=== PATIENT | female | born 1995 | race American Indian/Alaskan Native ===

== ENCOUNTER 2017-02-25 13:31 | Emergency (ER) | payer MEDICAID ==
[2017-02-25 14:16] LABS: Basophils % (Auto) 0.4 % (0.0-1.8); Eosinophils % (Auto) 0.5 % (0.0-4.3); Hematocrit 39.8 % (30.3-42.9); Hemoglobin 13.4 gm/dl (10.1-14.3); Mean Corpuscular HGB Conc 34 % (30-34); Mean Corpuscular Hemoglobin 31 pg (28-32); Mean Corpuscular Volume 91 fl (79-97); Platelet Count 323 K/mm3 (140-440); Red Blood Count 4.37 M/mm3 (3.65-5.03); Red Cell Distribution Width 13.6 % (13.2-15.2); White Blood Count 6.1 K/mm3 (4.5-11.0)
[2017-02-25 14:35] LABS: Alanine Aminotransferase 6 units/L (7-56); Albumin 3.8 g/dL (3.9-5); Albumin/Globulin Ratio 1.4 %; Alkaline Phosphatase 36 units/L (35-129); Anion Gap 17 mmol/L; Blood Urea Nitrogen 3 mg/dL (7-17); Calcium 8.9 mg/dL (8.4-10.2); Carbon Dioxide 23 mmol/L (22-30); Chloride 101.4 mmol/L (98-107); Glucose 98 mg/dL (65-100); Lipase 11 units/L (13-60); Potassium 3.6 mmol/L (3.6-5.0); Sodium 138 mmol/L (137-145); Total Protein 6.6 g/dL (6.3-8.2)
[2017-02-25 14:45] LABS: Bacteria,Urine 2+ /HPF (Negative); Bilirubin,Urine NEG (Negative); Blood,Urine NEG (Negative); Ketones,Urine NEG (Negative); Leukocyte Esterase,Urine NEG (Negative); Mucus,Urine FEW /HPF; Nitrite,Urine NEG (Negative); Protein,Urine <15 mg/dL mg/dL (Negative); Urobilinogen,Urine < 2.0 mg/dL (<2.0)
--- NOTE | 2017-02-25 16:46 | Ultrasound Report ---
FINAL REPORT PROCEDURE: US OB \T\lt; = 14 WEEKS FETUS TECHNIQUE: Real-time transabdominal and transvaginal sonography of the uterus, placenta, amniotic fluid, adnexa, and fetus was performed with image documentation. Measurements were obtained to determine age/size. M-mode Doppler was used to document heartbeat. CPT 92524 and 55883 HISTORY: preg/abd pain COMPARISON: No prior studies are available for comparison. FINDINGS: Single live intrauterine is seen with crown-rump length of 6.7 millimeters corresponding to 6 weeks 4 days gestational age. Estimated date of delivery based on this measurement is October 17, 2017. heart rate is 126 beats per minute. Right ovary measures 3.4 x 1.7 x 2.2 cm. It contains a 2 cm complex cyst. Left ovary measures 2.2 x 1.2 x 1.8 cm. Normal Doppler flow seen in the ovaries. No free pelvic fluid is seen. IMPRESSION: 1. Single live intrauterine gestation at approximately 6 weeks 4 days. 2. EDC by US October 17, 2017 3. Complete anatomic survey at 18-20 weeks suggested.
--- NOTE | 2017-02-25 16:46 | Ultrasound Report ---
FINAL REPORT PROCEDURE: US OB TRANSVAGINAL TECHNIQUE: Real-time transabdominal and transvaginal sonography of the uterus, placenta, amniotic fluid, adnexa, and fetus was performed with image documentation. Measurements were obtained to determine age/size. M-mode Doppler was used to document heartbeat. CPT 13552 and 77151 HISTORY: preg/abd pain COMPARISON: No prior studies are available for comparison. FINDINGS: Single live intrauterine is seen with crown-rump length of 6.7 millimeters corresponding to 6 weeks 4 days gestational age. Estimated date of delivery based on this measurement is October 17, 2017. heart rate is 126 beats per minute. Right ovary measures 3.4 x 1.7 x 2.2 cm. It contains a 2 cm complex cyst. Left ovary measures 2.2 x 1.2 x 1.8 cm. Normal Doppler flow seen in the ovaries. No free pelvic fluid is seen. IMPRESSION: 1. Single live intrauterine gestation at approximately 6 weeks 4 days. 2. EDC by US is October 17, 2017. 3. Complete anatomic survey at 18-20 weeks suggested.
[2017-02-25] MEDS ORDERED: NACL 0.9% 1000 ML 1,000 ML IV ONE (17:09)
--- NOTE | 2017-02-25 17:13 | Emergency Department Report ---
ED HPI - General Chief complaint: Abdominal Pain Stated complaint: CONSTANT HEAD PAIN/HEAT FLASHES Time Seen by Provider: 02/25/17 16:09 Source: patient Mode of arrival: Ambulatory Limitations: No Limitations - History of Present Illness Initial comments: 21-year-old female with no past medical history presenting today because of lightheadedness and nausea vomiting. Patient states that she been vomiting frequently for the last 1 week. She she was unaware that she was prior to arrival. She has had some spotting on and off over the last week. Has Headache associated with this to which she associated with dehydration. States she is able to keep some food down but a lot of times vomits up after eating. No significant abdominal pain, just mild cramping during vomiting. - Related Data Previous Rx's Medication Instructions Recorded Last Taken Type Pyridoxine [Vitamin B-6] 25 mg PO Q8H PRN #12 tablet 02/25/17 Unknown Rx Allergies Allergy/AdvReac Type Severity Reaction Status Date / Time No Known Allergies Allergy Verified 02/25/17 13:50 ED Review of Systems ROS: Stated complaint: CONSTANT HEAD PAIN/HEAT FLASHES Other details as noted in HPI Comment: All other systems reviewed and negative Constitutional: denies: chills, diaphoresis ENT: denies: throat pain Respiratory: denies: cough Cardiovascular: denies: chest pain Gastrointestinal: denies: abdominal pain, vomiting Genitourinary: denies: dysuria Skin: denies: rash Psychiatric: denies: anxiety ED Past Medical Hx - Past Medical History Hx Hypertension: No Hx CVA: No Hx Heart Attack/AMI: No Hx Congestive Heart Failure: No Hx Diabetes: No Hx Deep Vein Thrombosis: No Hx Pulmonary Embolism: No Hx GERD: Yes Hx Liver Disease: No Hx Renal Disease: No Hx of Cancer: Yes Hx Sickle Cell Disease: No Hx Arthritis: No Hx Headaches / Migraines: No Hx Seizures: No Hx Kidney Stones: No Hx Psychiatric Treatment: No Hx Asthma: No Hx COPD: No Hx Tuberculosis: No Hx Dementia: No Hx HIV: No Additional medical history: 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 had surgery for cancer in 2009; TUMOR REMOVED FROM BACK - Social History Smoking Status: Never Smoker Substance Use Type: None - Medications Home Medications: Home Medications Medication Instructions Recorded Confirmed Last Taken Type Pyridoxine [Vitamin B-6] 25 mg PO Q8H PRN #12 tablet 02/25/17 Unknown Rx ED Physical Exam - General Limitations: No Limitations General appearance: alert, in no apparent distress - Eye Eye exam: Present: normal appearance - ENT ENT exam: Present: mucous membranes dry - Respiratory Respiratory exam: Present: normal lung sounds bilaterally. Absent: respiratory distress - Cardiovascular Cardiovascular Exam: Present: regular rate, normal rhythm - GI/Abdominal GI/Abdominal exam: Present: soft. Absent: distended, tenderness - Extremities Exam Extremities exam: Present: normal inspection - Neurological Exam Neurological exam: Present: alert, oriented X3, CN II-XII intact, normal gait. Absent: motor sensory deficit - Psychiatric Psychiatric exam: Present: normal affect - Skin Skin exam: Present: intact ED Course Vital Signs 02/25/17 02/25/17 02/25/17 13:53 14:00 19:35 Temperature 98.6 F Pulse Rate 75 80 79 Respiratory 16 18 16 Rate Blood Pressure 114/82 Blood Pressure 120/78 115/69 [Left] O2 Sat by Pulse 100 98 98 Oximetry ED Medical Decision Making - Lab Data Result diagrams: 02/25/17 14:03 02/25/17 14:03 - Medical Decision Making Labs and ultrasound had been preordered, ultrasound does show an intrauterine Symptoms are likely secondary to dehydration secondary to nausea and vomiting secondary to , IV fluids ordered, type and screen labs unremarkable type and screen shows O+, rhogam not required Patient is stable for discharge Critical care attestation.: If time is entered above; I have spent that time in minutes in the direct care of this critically ill patient, excluding procedure time. ED Disposition Clinical Impression: Vaginal bleeding in patient at less than 20 weeks gestation Disposition: DISCHARGED TO HOME OR SELFCARE Is pt being admited?: No Condition: Stable Instructions: Abdominal Pain (ED) Additional Instructions: Please follow-up with an [employer]AT RENTAL CLERK in the next 3-5 days. Return to the emergency room if your symptoms significantly worsen or develop new symptoms. Prescriptions: Pyridoxine [Vitamin B-6] 25 mg PO Q8H PRN #12 tablet PRN Reason: Nausea And Vomiting Referrals: MAGDY DUNCAN MD [Staff Physician] - 3-5 Days PRIMARY CARE, [Primary Care Provider] - 3-5 Days
[2017-02-25] MEDS ORDERED: VITAMIN B-6 PO ONE (18:46)
[2017-02-25 20:00] VITALS: BP 115/69
== END 2017-02-25 19:35 | disposition home or self-care (01) ==
LOC: ED 13:31
DX: O26.891 Other specified pregnancy related conditions, first trimester (principal); R42 Dizziness and giddiness; O21.9 Vomiting of pregnancy, unspecified; R11.0 Nausea; K21.9 Gastro-esophageal reflux disease without esophagitis; Z3A.01 Less than 8 weeks gestation of pregnancy
CPT/HCPCS: 36415; 76801; 76817; 80053; 81001; 82962; 83690; 84703; 85025; 86850; 86900; 86901; 96360; 99284; J7030

== ENCOUNTER 2017-09-25 13:50 | Outpatient (CLI) | payer MEDICAID ==
[2017-09-25 14:32] VITALS: BP 134/81
--- NOTE | 2017-09-25 15:39 | Ultrasound Report ---
ULTRASOUND BIOPHYSICAL PROFILE: History: well being Technique: Transabdominal ultrasound with Doppler interrogation. 2 - breathing movements 2 - movements 2 - posture and tone 2 - Qualitative amniotic fluid volume 8 - TOTAL SCORE OF POSSIBLE 8 Heart Rate (bpm) 149
--- NOTE | 2017-09-25 15:58 | Ultrasound Report ---
FINAL REPORT EXAM: US OB FOLLOW UP HISTORY: EFW TECHNIQUE: Ultrasound evaluation of the gravid uterus PRIORS: 02/25/2017 FINDINGS: There is a single viable intrauterine with documented cardiac activity. Multiple ultrasound measurements are made to determine a composite gestational age. ratios are within normal limits. There is no evidence of placenta previa or abruption. The maternal cervix is obscured by head. The quantity of visualized amniotic fluid appears grossly normal. No sonographic abnormality in the visualized portion of the anatomy. Heart rate: 149 beats per minute position: Cephalic Placental position: Fundal grade 2 Amniotic fluid index: 21.8cm Estimated weight: 3194 g Growth percentile by ultrasound: 70 Ultrasound estimated gestational age: 37 weeks 0 days Ultrasound estimated delivery date: 10/16/2017 LMP estimated gestational age: 36 weeks 6 days LMP estimated delivery date: 10/17/2017 IMPRESSION: Single viable intrauterine with the above parameters
== END 2017-09-25 15:49 | disposition home or self-care (01) ==
LOC: TRG 13:50
PROVIDERS: ATTEND Obstetrics & Gynecology
DX: O47.1 False labor at or after 37 completed weeks of gestation (principal); Z3A.37 37 weeks gestation of pregnancy
CPT/HCPCS: 59025; 76816; 76819

== ENCOUNTER 2017-10-09 09:30 | Inpatient (IN) | payer MEDICAID ==
[2017-10-09] MEDS ORDERED: MINERAL OIL PO PRN (09:50)
[2017-10-09] MEDS ORDERED: XYLOCAINE 2% INFILTRATI ONE (09:50)
[2017-10-09] MEDS ORDERED: ePHEDrine SULFATE IV PRN ×2 (09:50→11:57)
[2017-10-09] MEDS ORDERED: BRETHINE SUB-Q PRN (09:50)
[2017-10-09] MEDS ORDERED: SUBLIMAZE IV PRN (09:50)
[2017-10-09] MEDS ORDERED: BRETHINE IVP PRN (09:50)
[2017-10-09] MEDS ORDERED: PITOCin/NS 20 UNIT/1000ML DRIP 20 UNITS/1,000 ML BAG IV SCH (10:00)
--- NOTE | 2017-10-09 10:05 | History and Physical Report ---
History of Present Illness Date of examination: 10/09/17 Date of admission: 10/09/17 09:31 Chief complaint: Contractions every 5 mins History of present illness: Patient presents today with c/o contractions every 5 mins since last night. She denies VB or LOF. She reports positive movements. She has had regular care at [facility] beginning @ 10 weeks gestation. She was a h/ o Vitamin D deficiency and Anemia this and is on supplementation. Her GBS was negative. Past History Past Medical History: no pertinent history Past Surgical History: other (Back surgery) Family/Genetic History: diabetes (Type II DM - maternal grandmother, aunt), heart disease (heart attack - mother, maternal grandmother), hypertension ( mother), stroke (mother) Social history: single - Obstetrical History Expected Date of Delivery: 10/17/17 Actual Gestation: 38 Week(s) 6 Day(s) : 2 Para: 1 Hx # Term Pregnancies: 1 Number of Pregnancies: 0 Spontaneous Abortions: 0 Induced : 0 Number of Living Children: 1 Medications and Allergies Allergies Allergy/AdvReac Type Severity Reaction Status Date / Time No Known Allergies Allergy Verified 10/09/17 09:32 Home Medications Medication Instructions Recorded Confirmed Last Taken Type Pnv,Calcium 72/Iron/Folic Acid 1 each PO DAILY 10/09/17 10/09/17 10/08/17 09:00 History [Preplus Ca-Fe 27 mg-FA 1 mg Tb] 1 Active Meds: Active Medications Ephedrine Sulfate (Ephedrine Sulfate) 10 mg IV Q2M PRN PRN Reason: Hypotension Fentanyl (Sublimaze) 100 mcg IV Q2H PRN PRN Reason: Labor Pain Lactated Ringer's (Lactated Ringers) 1,000 mls @ 125 mls/hr IV DIRECT HILDA Oxytocin/Sodium Chloride (Pitocin/Ns 20 Unit/1000ml Drip) 20 units in 1,000 mls @ 125 mls/hr IV DIRECT HILDA Lidocaine (Xylocaine 2%) 20 ml INFILTRATI ONCE ONE Stop: 10/09/17 09:51 Mineral Oil (Mineral Oil) 30 ml PO QHS PRN PRN Reason: Constipation Terbutaline Sulfate (Brethine) 0.25 mg SUB-Q ONCE PRN PRN Reason: Hyperstimulation/Hypertonicity Terbutaline Sulfate (Brethine) 0.25 mg IVP ONCE PRN PRN Reason: Hyperstimulation/Hypertonicity Review of Systems All systems: negative - Vital Signs Vital signs: Vital Signs Temp Pulse Resp BP Pulse Ox 98.3 F 71 20 129/78 100 10/09/17 09:47 10/09/17 09:47 10/09/17 09:47 10/09/17 09:47 10/09/17 09:47 Temp Pulse Resp BP Pulse Ox 98.3 F 83 20 129/78 99 10/09/17 09:47 10/09/17 09:57 10/09/17 09:47 10/09/17 09:47 10/09/17 09:57 - Physical Exam Breasts: Positive: deferred Cardiovascular: Regular rate, Normal S1, Normal S2, No murmurs Lungs: Positive: Clear to auscultation, Normal air movement Abdomen: Positive: normal appearance, soft Genitourinary (Female): Positive: normal external genitalia, normal perenium Vagina: Positive: normal moisture Uterus: Positive: normal size, normal contour Extremities: Positive: normal Deep Tendon Reflex Grade: Normal +2 - Obstetrical FHR: auscultation normal FHR comments: baseline 140, moderate variability, + accels, no decels Uterine Contraction Monitor Mode: External Cervical Dilatation: 7 (per RN) Cervical Effacement Percentage: 100 (per RN) station: 0 (per RN) Uterine Contraction Frequency (min): 3-5 Uterine Contraction Pattern: Regular Results All other labs normal. Assessment and Plan - Patient Problems (1) 38 weeks gestation of Current Visit: Yes Status: Acute (2) Active labor at term Current Visit: Yes Status: Acute Plan to address problem: Admit to L&D IV sedation prn and/or epidural for pain management Anticipate vaginal delivery
[2017-10-09] MEDS: LACTATED RINGERS 1,000 ML IV SCH ×3 (10:33→13:39)
[2017-10-09 10:37] LABS: Hematocrit 33.7 % (30.3-42.9); Hemoglobin 11.3 gm/dl (10.1-14.3); Mean Corpuscular HGB Conc 33 % (30-34); Mean Corpuscular Hemoglobin 31 pg (28-32); Mean Corpuscular Volume 91 fl (79-97); Platelet Count 281 K/mm3 (140-440); Red Cell Distribution Width 14.9 % (13.2-15.2)
[2017-10-09] MEDS ORDERED: fentaNYL-BUPIV 2 MCG/ML-0.125% 200 MCG/100 ML BAG EPIDURAL ONE (11:35)
[2017-10-09] MEDS ORDERED: NARCAN 2 MG/2 ML IV PRN (11:57)
--- NOTE | 2017-10-09 11:57 | Anesthesia Consultation ---
Anesthesia Consult and Med Hx Date of service: 10/09/17 - Airway Anesthetic Teeth Evaluation: Good ROM Head & Neck: Adequate Mental/Hyoid Distance: Adequate Mallampati Class: Class II Intubation Access Assessment: Good - Pulmonary Exam CTA: Yes - Cardiac Exam Cardiac Exam: No Murmur - Pre-Operative Health Status ASA Pre-Surgery Classification: ASA2 Proposed Anesthetic Plan: Epidural - Pulmonary Hx Asthma: No COPD: No Hx Pneumonia: No - Cardiovascular System Hx Hypertension: No Hx Heart Attack/AMI: No - Central Nervous System Hx Seizures: No Hx Psychiatric Problems: No - Endocrine Hx Renal Disease: No Hx End Stage Renal Disease: No Hx Liver Disease: No Hx Hypothyroidism: No Hx Hyperthyroidism: No - Hematic Hx Anemia: Yes Hx Sickle Cell Disease: No - Other Systems Hx Alcohol Use: No
[2017-10-09] MEDS ORDERED: fentaNYL-BUPIV 2 MCG/ML-0.125% 200 MCG/100 ML BAG EPIDURAL SCH (12:00)
--- NOTE | 2017-10-09 12:24 | Event Note ---
Date: 10/09/17 S: Pt lying supine in semi-fowlers position s/p epidural anesthesia. She denies any pain. O: FHR - baseline 135, min variability, 10x10 accels, no decels CTXS q2-4 mins. palpate moderate SVE 8/100/+1/vtx/BBOW AROM @ 12:12, clear fluid, moderate amount A: 22yo G 2 P 1 0 0 1 @ 38w6d by U/S Active Labor Category II FHR P: Continue current management Anticipate vaginal delivery
[2017-10-09] MEDS ORDERED: MILK OF MAGNESIA PO PRN (14:38)
[2017-10-09] MEDS ORDERED: ZOFRAN IV PRN (14:38)
[2017-10-09] MEDS ORDERED: LANSINOH TP PRN (14:38)
[2017-10-09] MEDS ORDERED: PHENERGAN PO PRN (14:38)
[2017-10-09] MEDS ORDERED: TUCKS PAD TP PRN (14:38)
[2017-10-09] MEDS ORDERED: PHENERGAN PR PRN (14:38)
[2017-10-09] MEDS ORDERED: TYLENOL PO PRN (14:38)
[2017-10-09] MEDS ORDERED: DULCOLAX PR PRN (14:38)
[2017-10-09] MEDS ORDERED: BENADRYL PO PRN (14:38)
--- NOTE | 2017-10-09 14:50 | Procedure Note ---
OB Delivery Note - Delivery Date of Delivery: 10/09/17 (14:18) Surgeon: RAJAT MICHAEL Estimated blood loss: 200cc - Vaginal Delivery presentation: vertex Delivery position: OA Intrapartum events: none Delivery induction: none Delivery augmentation: rupture of membranes (AROM @ 12:12) Delivery monitor: external FHT, external uterine Route of delivery: Delivery placenta: spontaneous Delivery cord: 3 umbilical vessels Episiotomy: none Delivery laceration: none Anesthesia: epidural Delivery comments: of a vigorous term female @ 14:18. Baby placed [id number] on maternal abdomen. After 3 mins, umbilical cord double-clamped by me and cut by FOB. Placenta spontaneously delivered @ 14:24, Leeroy. Fundal massage and IV Pitocin bolus initiated. Fundus F/ML/U+1. Small lochia noted. Placenta intact; was discarded. 3-vessel cord. Perineum intact. No laceration noted. Mom and baby in stable condition. - Infant A at 1 minute: 8 at 5 minutes: 9 Gender: Female (7lbs 11oz (3483gm))
[2017-10-09] MEDS ORDERED: SODIUM CHLORIDE FLUSH SYRINGE 10 ML IV NR (15:00)
[2017-10-09] MEDS: MOTRIN PO SCH ×2 (18:47→23:22)
[2017-10-09] MEDS: NORCO 5/325 PO PRN (18:49)
[2017-10-10 01:18] LABS: Hematocrit 30.9 % (30.3-42.9); Hemoglobin 10.3 gm/dl (10.1-14.3)
[2017-10-10] MEDS: MOTRIN PO SCH ×4 (05:53→20:10)
--- NOTE | 2017-10-10 10:12 | Progress Note ---
Assessment and Plan A: PP Day #1 Stable P: Follow Routine Orders D/C home today per patient request RTO in 6 Weeks Subjective - Subjective Date of service: 10/10/17 Patient reports: appetite normal, voiding normally, pain well controlled, flatus , ambulating normally : doing well Objective - Vital Signs Latest vital signs: Vital Signs Temp Pulse Resp BP BP Pulse Ox 10/10/17 08:02 98.8 F 79 18 97/62 98 10/10/17 06:33 18 10/10/17 05:53 18 10/10/17 00:22 18 10/09/17 23:54 98.9 F 68 20 111/65 98 10/09/17 23:22 18 10/09/17 20:59 97.7 F 63 20 109/64 97 10/09/17 19:49 18 10/09/17 19:47 18 10/09/17 16:15 98.7 F 71 20 128/83 97 10/09/17 16:14 72 97 10/09/17 15:50 98.6 F 68 16 129/72 10/09/17 15:20 98.6 F 10/09/17 15:19 71 133/85 10/09/17 15:04 76 122/82 10/09/17 14:48 89 122/72 10/09/17 14:33 81 119/75 10/09/17 14:28 91 H 110/66 10/09/17 14:24 164 H 98/45 10/09/17 14:15 100 H 123/72 10/09/17 14:11 87 100 10/09/17 14:06 72 99 10/09/17 14:03 83 74 L 10/09/17 14:01 85 98 10/09/17 13:58 79 116/67 10/09/17 13:56 83 97 10/09/17 13:51 84 97 10/09/17 13:46 87 98 10/09/17 13:44 96 H 108/76 10/09/17 13:43 87 0 L 10/09/17 13:41 98.5 F 99 H 18 98 10/09/17 13:36 79 99 10/09/17 13:31 103 H 96 10/09/17 13:29 88 117/76 10/09/17 13:26 81 97 10/09/17 13:21 82 98 10/09/17 13:16 84 98 10/09/17 13:13 80 120/77 10/09/17 13:11 83 100 10/09/17 13:06 82 100 10/09/17 13:01 83 90 10/09/17 13:00 80 109/72 85 10/09/17 12:56 89 98 10/09/17 12:51 87 97 10/09/17 12:46 88 98 10/09/17 12:44 82 125/81 10/09/17 12:41 75 98 10/09/17 12:36 73 100 10/09/17 12:35 56 L 60 L 10/09/17 12:31 74 98 10/09/17 12:29 81 127/71 10/09/17 12:26 85 99 10/09/17 12:21 81 96 10/09/17 12:16 76 98 10/09/17 12:15 98.2 F 10/09/17 12:11 78 98 10/09/17 12:09 76 115/69 10/09/17 12:06 84 97 10/09/17 12:04 77 121/71 10/09/17 12:01 78 97 10/09/17 11:58 79 113/69 10/09/17 11:57 81 121/67 10/09/17 11:56 98.4 F 74 20 97 10/09/17 11:55 90 168/69 10/09/17 11:52 82 125/72 10/09/17 11:51 83 98 10/09/17 11:50 86 124/73 10/09/17 11:42 87 99 10/09/17 11:34 79 94 10/09/17 11:32 79 99 10/09/17 11:27 78 96 10/09/17 11:22 89 97 10/09/17 11:17 86 98 10/09/17 11:12 84 99 10/09/17 11:07 89 98 10/09/17 11:02 83 99 10/09/17 10:59 90 81 L 10/09/17 10:57 83 98 10/09/17 10:52 86 97 10/09/17 10:47 81 98 10/09/17 10:42 92 H 97 10/09/17 10:37 74 99 10/09/17 10:34 20 10/09/17 10:32 85 94 10/09/17 10:29 83 93 10/09/17 10:27 71 99 10/09/17 10:22 80 99 10/09/17 10:17 80 99 Intake and Output 10/09/17 10/10/17 10/10/17 22:59 06:59 14:59 Intake Total 360 120 Output Total 650 Balance -290 120 Intake: Intake, Free Water 360 120 Output: Urine 650 Self-Catheterization 650 Other: Total, Output Amount 650 # Voids Void 1 1 - Exam Breasts: Present: normal Cardiovascular: Present: Regular rate Lungs: Present: Clear to auscultation, Normal air movement Abdomen: Present: normal appearance, soft, normal bowel sounds Uterus: Present: normal, firm, fundal height below umbilicus Extremities: Present: normal
--- NOTE | 2017-10-10 10:13 | Discharge Summary ---
Providers - Providers Date of Admission: 10/09/17 09:31 Date of discharge: 10/10/17 Attending physician: PATRICIA LEBRON MD Primary care physician: PATRICIA LEBRON MD Hospitalization Reason for admission: active labor Delivery: Episiotomy: none Laceration: none Other procedures: none complications: none Discharge diagnosis: IUP at term delivered [place] baby: female Condition at discharge: Good Disposition: DC-01 TO HOME OR SELFCARE Plan - Provider Discharge Summary Activity: routine, no sex for 6 weeks, no heavy lifting 4 weeks, no strenuous exercise Diet: routine Instructions: routine Additional instructions: [] Smoking cessation referral if applicable(refer to patient education folder for contact #) [] Refer to [facility] Booklet Call your doctor immediately for: * Fever > 100.5 * Heavy vaginal bleeding ( >1 pad per hour) * Severe persistent headache * Shortness of breath * Reddened, hot, painful area to leg or breast * Drainage or odor from incision. * Keep incision clean and dry at all times and follow doctor's instructions regarding bathing/showering - Follow up plan Follow up: PATRICIA LEBRON MD [Primary Care Provider] - 6 Weeks
[2017-10-10] MEDS ORDERED: TYLENOL PO PRN (15:59)
[2017-10-10] MEDS ORDERED: LACTATED RINGERS 1,000 ML ONE (16:56)
[2017-10-10] MEDS: CLEOCIN 900 MG/50 mL 900 MG/50 ML BAG IV SCH ×2 (17:49→22:42)
[2017-10-10] MEDS: NORCO 5/325 PO PRN (20:11)
[2017-10-11] MEDS: NORCO 5/325 PO PRN (06:28)
[2017-10-11] MEDS: CLEOCIN 900 MG/50 mL 900 MG/50 ML BAG IV SCH ×2 (06:28→13:32)
[2017-10-11] MEDS: MOTRIN PO SCH ×2 (06:28→12:45)
[2017-10-11 17:45] VITALS: BP 110/79
== END 2017-10-11 17:25 | disposition home or self-care (01) | DRG 775 ==
LOC: TRG 09:30 → LD 09:31 → TRG 09:35 → OB 15:50
PROVIDERS: ADMIT Obstetrics & Gynecology; ATTEND Obstetrics & Gynecology
PROC: 10E0XZZ Delivery of Products of Conception, External Approach (ICD-10-PCS; principal; 2017-10-09)
PROC: 3E0R3BZ Introduction of Anesthetic Agent into Spinal Canal, Percutaneous Approach (ICD-10-PCS; 2017-10-09)
PROC: 00HU33Z Insertion of Infusion Device into Spinal Canal, Percutaneous Approach (ICD-10-PCS; 2017-10-09)
DX: O80 Encounter for full-term uncomplicated delivery (principal); Z3A.38 38 weeks gestation of pregnancy; Z37.0 Single live birth
CPT/HCPCS: 36415; 85014; 85018; 85027; 86592; 86850; 86900; 86901; 99211; A6250; G0463; J2405; J2590; J3010; J7120

== ENCOUNTER 2019-07-24 17:02 | Inpatient (IN) | payer MEDICAID ==
--- NOTE | 2019-07-24 18:14 | History and Physical Report ---
History of Present Illness Date of examination: 07/24/19 Date of admission: 07/24/2019 Chief complaint: Was brought in from the clinic due SFH of 43cm and no care. History of present illness: , vaginal term deliveries. LMP 12/05/2018, no care due to "lack of insurance". Took some multivitamins from otc. Reported contractions all day. Past History Past Medical History: no pertinent history Past Surgical History: no surgical history - Obstetrical History Expected Date of Delivery: 09/11/19 Actual Gestation: 33 Week(s) 0 Day(s) : 3 Para: 2 Medications and Allergies Allergies Allergy/AdvReac Type Severity Reaction Status Date / Time No Known Allergies Allergy Verified 10/09/17 09:32 Home Medications Medication Instructions Recorded Confirmed Last Taken Type Pnv,Calcium 72/Iron/Folic Acid 1 each PO DAILY 10/09/17 10/09/17 10/08/17 09:00 History [Preplus Ca-Fe 27 mg-FA 1 mg Tb] 1 Review of Systems All systems: negative Genitourinary: contractions, no leakage of fluid, no dysuria Integumentary: no pruritis, no jaundice, no bullae - Vital Signs Vital signs: Vital Signs Pulse BP 85 131/83 07/24/19 17:28 07/24/19 17:28 Temp Pulse Resp BP Pulse Ox 98.2 F 85 18 131/83 07/24/19 17:30 07/24/19 17:30 07/24/19 17:30 07/24/19 17:30 - Physical Exam Breasts: Positive: deferred Lungs: Positive: Normal air movement Abdomen: Positive: distention. Negative: tenderness Uterus: Positive: enlarged, normal contour Deep Tendon Reflex Grade: Normal +2 - Obstetrical FHR: auscultation normal, other (Variability moderate. Bedside US - probable polyhydramnios- OFficial US report is awaited.) Uterine Contraction Monitor Mode: External Results All other labs normal. Assessment and Plan - Patient Problems (1) No care in current Current Visit: Yes Status: Acute Plan to address problem: Patient was being seen for the first time in current preg today. Information from Ultrasonography, monitoring, bacteriology, blood tests, urine tests are in progress and will guide management.
[2019-07-24] MEDS ORDERED: TYLENOL PO PRN (18:26)
[2019-07-24] MEDS ORDERED: COLACE PO PRN (18:26)
[2019-07-24] MEDS ORDERED: MILK OF MAGNESIA PO PRN (18:26)
[2019-07-24] MEDS ORDERED: D5LR 1,000 ML IV SCH (19:00)
--- NOTE | 2019-07-24 19:22 | Ultrasound Report ---
THIRDTRIMESTER COMPLETE OBSTETRIC ULTRASOUND HISTORY: FRANCISCA COMPARISON: None. TECHNIQUE: Complete transabdominal obstetric sonogram. FINDINGS: Ovaries And Uterus: The visualized portions of the uterus appear normal. The ovaries are not visualiz ed. Gestation: Single monochorionic monoamniotic intrauterine fetus Cervix: cm in length and closed Placenta: Fundal location and free of the internal os. Presentation: Currently cephalic. Amniotic Fluid Index: 15.5 cm ANATOMY: Spine:Normal Nose and upper lip:Normal Heart: Normal four chamber view. Cardiac activity beats per minute Stomach: Normal Kidneys: Normal Bladder: Normal Cord: Normal cord insertion: Midline insertion Extremities:Normal BIOMETRY: Biparietal diameter: 8.4 cm corresponding [id number] 6 days Head circumference: 29.6 cmcorresponding to32 weeks 5 days Abdominal circumference: 33.9 cmcorresponding to37 weeks 6 days Femur length: 6.4 cmcorresponding to35 weeks 2 days Estimated gestational age based on clinical history/previous ultrasound: 34 weeks 6 days with FELICIANO Estimated gestational age based on today's measurements: Estimated weight: 2856 g IMPRESSION Single living intrauterine as noted above Signer Name: Ector Aggarwal MD Signed: 07/24/2019 7:18 PM Workstation Name: [id number]
--- NOTE | 2019-07-24 19:23 | Ultrasound Report ---
CLINICAL DATA: well-being TECHNICAL DATA: Document breath, motion, gestational age, tone, and fluid. FINDINGS: respiration, tone, and motion are well visualized and normal. Amniotic fluid volume is normal. Biophysical profile score is 8/8. The lower uterine segment is evaluated and there is no evidence of placenta previa. heart rate is Heart Rate. 143 bpm IMPRESSION: The biophysical profile score is 8/8. Signer Name: Ector Aggarwal MD Signed: 07/24/2019 7:19 PM Workstation Name: [id number]
[2019-07-24 19:58] LABS: Bacteria,Urine 2+ /HPF (Negative); Bilirubin,Urine NEG (Negative); Blood,Urine SM (Negative); Color,Urine Yellow (Yellow); Mucus,Urine FEW /HPF; Protein,Urine <15 mg/dL mg/dL (Negative); Urobilinogen,Urine < 2.0 mg/dL (<2.0)
[2019-07-24 20:17] LABS: Amphetamine Screen,Urine PRESUMPTIVE NEGATIVE; Benzodiazepines Screen,Urine PRESUMPTIVE NEGATIVE; Cocaine Screen,Urine PRESUMPTIVE NEGATIVE; Methadone Screen,Urine PRESUMPTIVE NEGATIVE; Opiate Screen,Urine PRESUMPTIVE NEGATIVE
[2019-07-24] MEDS ORDERED: LACTATED RINGERS 1,000 ML ONE ×2 (20:27→21:05)
[2019-07-24 20:39] LABS: Basophils % (Auto) 0.4 % (0.0-1.8); Eosinophils % (Auto) 0.4 % (0.0-4.3); Hemoglobin 10.1 gm/dl (10.1-14.3); Lymphocytes # (Auto) 1.7 K/mm3 (1.2-5.4); Lymphocytes % (Auto) 25.1 % (13.4-35.0); Mean Corpuscular HGB Conc 33 % (30-34); Mean Corpuscular Volume 86 fl (79-97); Monocytes # (Auto) 0.6 K/mm3 (0.0-0.8); Monocytes % (Auto) 8.4 % (0.0-7.3); Platelet Count 393 K/mm3 (140-440); Red Blood Count 3.59 M/mm3 (3.65-5.03)
[2019-07-24] MEDS ORDERED: AMPICILLIN/NS 2 GM/100 ML 2 GM/100 ML BAG IV ONE (20:49)
[2019-07-24 20:58] LABS: Albumin 3.2 g/dL (3.9-5); BUN/Creatinine Ratio 8; Blood Urea Nitrogen 4 mg/dL (7-17); Calcium 8.6 mg/dL (8.4-10.2); Hemolysis Index 2
[2019-07-24 21:03] LABS: Hepatitis C Virus Antibody Non-Reactive (NonReactive)
[2019-07-24 21:06] LABS: Cannabinoid Screen,Urine PRESUMPTIVE POSITIVE
[2019-07-24] MEDS ORDERED: STADOL IV PRN (21:18)
[2019-07-24 21:22] LABS: Alanine Aminotransferase < 5 units/L (7-56)
[2019-07-24] MEDS ORDERED: CELESTONE SOLUSPAN IM SCH (21:30)
[2019-07-24] MEDS ORDERED: PITOCin/NS 20 UNIT/1000ML DRIP 20,000 MILLIUNITS/1,000 ML BAG IV ONE (23:48)
[2019-07-25] MEDS ORDERED: NORCO 5/325 PO PRN (00:38)
[2019-07-25] MEDS ORDERED: PHENERGAN PR PRN (00:38)
[2019-07-25] MEDS ORDERED: BENADRYL PO PRN (00:38)
[2019-07-25] MEDS ORDERED: LANSINOH TP PRN (00:38)
[2019-07-25] MEDS ORDERED: DULCOLAX PR PRN (00:38)
[2019-07-25] MEDS ORDERED: MILK OF MAGNESIA PO PRN (00:38)
[2019-07-25] MEDS ORDERED: PHENERGAN PO PRN (00:38)
[2019-07-25] MEDS ORDERED: TUCKS PAD TP PRN (00:38)
[2019-07-25] MEDS ORDERED: ZOFRAN IV PRN (00:38)
[2019-07-25] MEDS ORDERED: AMPICILLIN/NS 1 GM/50 ML 1 GM/50 ML BAG IV SCH (00:50)
--- NOTE | 2019-07-25 00:50 | Procedure Note ---
OB Delivery Note - Delivery Date of Delivery: 07/24/19 Surgeon: RAISSA GOSS Inspecting Supervisor: KANDACE DAVILA Estimated blood loss: 500cc - Vaginal Delivery position: OA Intrapartum events: no care, labor-<37 weeks, meconium, hydramnios, precipitous labor- <3hr Delivery induction: none Delivery monitor: external FHT, external uterine Route of delivery: Delivery placenta: spontaneous Episiotomy: none Delivery laceration: none Anesthesia: none - A at 1 minute: 7 at 5 minutes: 9 Gender: Female
[2019-07-25] MEDS ORDERED: SODIUM CHLORIDE FLUSH SYRINGE 10 ML IV PRN (01:00)
[2019-07-25] MEDS ORDERED: PITOCin/NS 20 UNIT/1000ML DRIP 20 UNITS/1,000 ML BAG IV SCH (01:00)
[2019-07-25 01:08] LABS: Basophils % (Auto) 0.4 % (0.0-1.8); Eosinophils % (Auto) 0.3 % (0.0-4.3); Hematocrit 30.1 % (30.3-42.9); Hemoglobin 9.8 gm/dl (10.1-14.3); Lymphocytes # (Auto) 2.3 K/mm3 (1.2-5.4); Lymphocytes % (Auto) 26.5 % (13.4-35.0); Mean Corpuscular HGB Conc 33 % (30-34); Mean Corpuscular Volume 87 fl (79-97); Monocytes # (Auto) 0.5 K/mm3 (0.0-0.8); Platelet Count 378 K/mm3 (140-440); Red Blood Count 3.45 M/mm3 (3.65-5.03); Red Cell Distribution Width 14.5 % (13.2-15.2)
[2019-07-25] MEDS: IBUPROFEN PO SCH ×4 (03:59→23:43)
[2019-07-25] MEDS: FEOSOL PO SCH ×2 (09:38→20:34)
[2019-07-25] MEDS: PRENATAL VITAMIN PO SCH (09:38)
--- NOTE | 2019-07-25 09:51 | Progress Note ---
Assessment and Plan - Patient Problems (1) (normal spontaneous vaginal delivery) Current Visit: Yes Status: Acute Plan to address problem: Continue routine PP orders Anticipate d/c home in 24 hrs if stable (2) Anemia Current Visit: Yes Status: Acute Qualifiers: Anemia type: other cause Other causes of anemia: acute posthemorrhagic Qualified Code(s): D62 - Acute posthemorrhagic anemia Plan to address problem: Asymtomatic Ferrous sulfate 325mg po BID Increase iron rich foods into diet Subjective - Subjective Date of service: 07/25/19 Principal diagnosis: - day #1 Interval history: See admission H & P; OB delivery summary and PP progress notes Patient reports: appetite normal, voiding normally, pain well controlled, flatus, ambulating normally, no bowel movement [place]: doing well, bottle feeding (and ) Objective - Vital Signs Latest vital signs: Vital Signs Temp Pulse Resp BP BP Pulse Ox 07/25/19 02:46 98.1 F 59 L 18 133/76 07/25/19 02:25 57 L 112/63 07/25/19 02:10 66 111/61 07/25/19 01:55 70 111/58 07/25/19 01:40 60 123/61 07/25/19 01:10 61 106/57 07/25/19 00:55 72 111/64 07/25/19 00:40 66 115/67 07/25/19 00:25 82 121/60 07/25/19 00:11 88 100 07/25/19 00:10 76 123/62 07/25/19 00:06 73 100 07/25/19 00:01 80 100 07/25/19 00:00 97.9 F 82 18 122/60 98 07/24/19 23:54 82 122/60 07/24/19 23:01 85 98 07/24/19 22:56 82 99 07/24/19 22:51 81 100 07/24/19 22:43 86 99 07/24/19 22:38 90 97 07/24/19 22:33 87 98 07/24/19 22:28 91 H 98 07/24/19 22:23 83 97 07/24/19 22:18 88 98 07/24/19 22:13 91 H 98 07/24/19 22:08 87 99 07/24/19 22:03 89 99 07/24/19 21:58 86 99 07/24/19 21:53 84 98 07/24/19 21:48 92 H 100 07/24/19 21:45 78 72 L 07/24/19 21:43 65 100 07/24/19 21:40 69 77 L 07/24/19 21:38 79 99 07/24/19 21:37 18 07/24/19 21:33 76 100 07/24/19 21:28 68 100 07/24/19 21:23 80 100 07/24/19 21:18 75 99 07/24/19 21:13 70 99 07/24/19 21:08 81 99 07/24/19 21:03 73 100 07/24/19 20:58 77 100 07/24/19 17:30 98.2 F 85 18 131/83 07/24/19 17:28 85 131/83 Intake and Output 07/24/19 07/25/19 07/25/19 23:59 07:59 15:59 Intake Total 120 Output Total 600 Balance -480 Intake: Oral 120 Output: Urine 600 Void 600 Other: Total, Intake Amount 120 Total, Output Amount 600 # Voids Void 2 Weight 65.771 kg Estimated Blood Loss 400 - Exam Breasts: Present: normal Cardiovascular: Present: Regular rate Lungs: Present: Normal air movement Abdomen: Present: soft Uterus: Present: firm, fundal height above umbilicus (U+1, denies any abdominal discomfort or excessive bleeding) Extremities: Present: normal Deep Tendon Reflex Grade: Normal +2 - Labs Labs: Abnormal lab results 07/24/19 07/24/19 07/24/19 Range/Units 19:43 19:53 20:04 RBC 3.59 L (3.65-5.03) M/mm3 Hgb (10.1-14.3) gm/dl Hct (30.3-42.9) % [place] % (Auto) 8.4 H (0.0-7.3) % Potassium 3.5 L (3.6-5.0) mmol/L Carbon Dioxide 18 L (22-30) mmol/L BUN 4 L (7-17) mg/dL Creatinine 0.5 L (0.7-1.2) mg/dL Glucose 60 L (65-100) mg/dL ALT < 5 L (7-56) units/L Alkaline Phosphatase 152 H (35-129) units/L Albumin 3.2 L (3.9-5) g/dL Urine WBC (Auto) 7.0 H (0.0-6.0) /HPF 07/24/19 Range/Units 23:55 RBC 3.45 L (3.65-5.03) M/mm3 Hgb 9.8 L (10.1-14.3) gm/dl Hct 30.1 L (30.3-42.9) % [place] % (Auto) (0.0-7.3) % Potassium (3.6-5.0) mmol/L Carbon Dioxide (22-30) mmol/L BUN (7-17) mg/dL Creatinine (0.7-1.2) mg/dL Glucose (65-100) mg/dL ALT (7-56) units/L Alkaline Phosphatase (35-129) units/L Albumin (3.9-5) g/dL Urine WBC (Auto) (0.0-6.0) /HPF
--- NOTE | 2019-07-25 09:58 | Discharge Summary ---
Providers - Providers Date of Admission: 07/24/19 17:19 Date of discharge: 07/26/19 (1500) Attending physician: PATRICIA LEBRON MD Primary care physician: PATRICIA LEBRON MD Hospitalization Reason for admission: active labor, IUP - Delivery: Episiotomy: none Laceration: none Other procedures: none complications: none Discharge diagnosis: other ( or ; Anemia) [place] baby: female Hospital course: See admission H & P; OB delivery summary and PP progress notes Condition at discharge: Stable Disposition: DC-01 TO HOME OR SELFCARE - Discharge Diagnoses (1) (normal spontaneous vaginal delivery) Status: Acute (2) Anemia Status: Acute Qualifiers: Anemia type: other cause Other causes of anemia: acute posthemorrhagic Qualified Code(s): D62 - Acute posthemorrhagic anemia Plan - Discharge Medications Prescriptions: Ferrous Sulfate [Ferrous Sulfate 324 MG] 324 mg PO BID 30 Days #60 tablet.dr - Provider Discharge Summary Activity: routine, no sex for 6 weeks, no heavy lifting 4 weeks, no strenuous exercise Diet: other (Iron rich diet) Instructions: routine Additional instructions: [] Smoking cessation referral if applicable(refer to patient education folder for contact #) [] Refer to [facility] Booklet Call your doctor immediately for: * Fever > 100.5 * Heavy vaginal bleeding ( >1 pad per hour) * Severe persistent headache * Shortness of breath * Reddened, hot, painful area to leg or breast * Drainage or odor from incision. * Continue daily oral iron supplementation as directed - Follow up plan Follow up: PATRICIA LEBRON MD [Primary Care Provider] - 6 Weeks
[2019-07-25] MEDS ORDERED: CELESTONE SOLUSPAN IM SCH (10:00)
[2019-07-25] MEDS ORDERED: PRENATAL VITAMIN PO SCH (10:00)
[2019-07-25 13:20] LABS: Hematocrit 29.3 % (30.3-42.9); Hemoglobin 9.3 gm/dl (10.1-14.3)
[2019-07-26] MEDS: IBUPROFEN PO SCH ×3 (06:49→22:11)
[2019-07-26] MEDS: PRENATAL VITAMIN PO SCH (10:09)
[2019-07-26] MEDS: FEOSOL PO SCH ×2 (10:09→22:11)
--- NOTE | 2019-07-26 13:39 | Progress Note ---
Assessment and Plan A: day 2 S/P . Anemia secondary to and blood loss. No care (until last day of ), pt. was in labor during her visit. Positive RPR with possible signs and symptoms of syphilis (FTA-ABS pending). Fundal height high for post delivery status. P: FTA-ABS, urine C&S, pelvic US ordered. Bicillin injection ordered. Discussed with patient further testing that has been ordered and possible etiologies for above. Continue iron supplementation for anemia. Subjective - Subjective Date of service: 07/26/19 Principal diagnosis: - day #2 Interval history: day 2 S/P spontaneous vaginal delivery. Patient had had no care until the day she delivered her baby (she cited insurance reasons). Patient's drug screen +THC and her RPR was reactive with titer 1:32. Patient states she has never been diagnosed with syphilis in the past. FTA-ABS ordered. Patient states she has had nonitchy rashes on her palms and soles and also a skin rash on her legs; she denies any known chancres. She states she does not know if her sexual partner could have or have had syphilis. Baby has been taken to NICU for observation. Patient had fundal height which was high for dates before she delivered; she was thought to possibly have had polyhydramnios but US before delivery shows normal FRANCIS[place]. Now 2 days after delivery her fundal height is still 4 FB above the umbilicus. Patient reports small to moderate amount of lochia and she denies clots. She states she is having a lot of pelvic cramping that the Motrin does not relieve. Denies urinary frequency or dysuria. WBCs noted on UA; urine C&S has been ordered. Voiding without difficulty, ambulating well, tolerating a regular diet. Patient denies headache, chest pain, cough, shortness of breath, leg pain, or nausea/vomiting. Patient reports: appetite normal, voiding normally, flatus, ambulating normally, no dizzy ambulation, no nauseated : doing well, in NICU Objective - Vital Signs Latest vital signs: Vital Signs Temp Pulse Resp BP BP Pulse Ox 07/26/19 08:16 98.1 F 48 L 16 113/62 100 07/26/19 00:00 98.6 F 61 18 119/78 07/25/19 16:44 97.9 F 72 18 126/76 99 Intake and Output 07/25/19 07/26/19 07/26/19 23:59 07:59 15:59 Intake Total 300 Balance 300 Intake: Intake, Free Water 300 Other: # Voids Void 1 - Exam Cardiovascular: Present: Regular rate, Normal S1, Normal S2, No murmurs Lungs: Present: Clear to auscultation Abdomen: Present: normal appearance, soft. Absent: distention, tenderness, guarding, rigidity Uterus: Present: firm, fundal height above umbilicus (FH 4 FB above umbilicus). Absent: bogginess, tenderness Extremities: Absent: tenderness, edema
[2019-07-26] MEDS ORDERED: BICILLIN L-A IM ONE ×2 (14:00→16:30)
--- NOTE | 2019-07-26 14:54 | Ultrasound Report ---
ULTRASOUND PELVIS INDICATION / CLINICAL INFORMATION: fundal height high 2 days after . TECHNIQUE: Transabdominal. Duplex Color Doppler used: Yes. COMPARISON: None available FINDINGS: UTERUS: Present. - Appearance (if present): Uterus enlarged consistent with state. - Size in cm (if present): 19.3 x 10.3 x 16.5. - Endometrial Complex (if present): No significant abnormality.. Thickness in cm (if measured) = 0.4 - Mass lesions: None. - Additional findings: None. RIGHT ADNEXA: No significant ovarian cyst or mass. Normal color Doppler blood flow. LEFT ADNEXA: No significant ovarian cyst or mass. Normal color Doppler blood flow. URINARY BLADDER: No significant abnormality. FREE FLUID: None. ADDITIONAL FINDINGS: None. IMPRESSION: 1. Large uterus without acute sonographic abnormality. Signer Name: Lizzy Rivera MD Signed: 07/26/2019 2:50 PM Workstation Name: [id number]
--- NOTE | 2019-07-26 16:00 | Event Note ---
Date: 07/26/19 Infectious Disease consult ordered and spoke with Dr. Muñiz.
--- NOTE | 2019-07-26 16:32 | Consultation ---
History of Present Illness - Reason for Consult Consult date: 07/26/19 Positive RPR Requesting physician: RAISSA GOSS - History of Present Illness The patient is a 23-year-old female with no significant past medical history came into the hospital on 07/24/2019 in labor. She reportedly got no care. She previously had a in 2017, had a negative HIV test and negative syphilis test. RPR here came back reactive at 1:32. She also reports a rash on her palms and soles going on for the last 3 months. Denies any previous history of STD. ID was consulted for positive RPR. She had a normal vaginal delivery on 07/24/2019. Review of Systems: General: no fevers,chills or rigors HEENT: no new visual disturbance Respiratory: No cough, sputum, hemoptysis or shortness of breath Cardiovascular: No chest pain, syncope Gastrointestinal: No nausea, vomiting or diarrhea Genitourinary: No dysuria or hematuria Musculoskeletal: No new or worsening neck pain or back pain Neurologic: No headaches, seizures Hematologic: No easy bruising or bleeding Endocrine: No night sweats or acute weight loss Skin: positive for rash, no jaundice Psychiatric: No suicidal or homicidal ideation Medications and Allergies Allergies Allergy/AdvReac Type Severity Reaction Status Date / Time No Known Allergies Allergy Verified 10/09/17 09:32 Home Medications Medication Instructions Recorded Confirmed Last Taken Type Pnv,Calcium 72/Iron/Folic Acid 1 each PO DAILY 10/09/17 07/25/19 10/08/17 09:00 History [Preplus Ca-Fe 27 mg-FA 1 mg Tb] 1 Ferrous Sulfate [Ferrous Sulfate 324 mg PO BID 30 Days #60 tablet. 07/25/19 Unknown Rx 324 MG] Active Meds: Active Medications Acetaminophen/Hydrocodone Bitart ([place] 5/325) 2 each PO Q6H PRN PRN Reason: Pain, Moderate (4-6) Last Admin: 07/25/19 10:21 Dose: 2 each Documented by: Bisacodyl (Dulcolax) 10 mg MD BID PRN PRN Reason: Constipation Diphenhydramine HCl (Benadryl) 25 mg PO Q6H PRN PRN Reason: Itching Ferrous Sulfate (Feosol) 325 mg PO TID [facility] Last Admin: 07/26/19 10:09 Dose: 325 mg Documented by: Oxytocin/Sodium Chloride (Pitocin/Ns 20 Unit/1000ml Drip) 20 units in 1,000 mls @ 250 mls/hr IV DIRECT [facility] Ibuprofen (Ibuprofen) 600 mg PO Q6HR [facility] Last Admin: 07/26/19 10:09 Dose: 600 mg Documented by: Magnesium Hydroxide (Milk Of Magnesia) 30 ml PO HS PRN PRN Reason: Constipation Multi-Ingredient Ointment (Lansinoh) 1 applic TP PRN PRN PRN Reason: Sore Nipples Multivitamins/Iron/Calcium ( Vitamin) 1 each PO QDAY [facility] Last Admin: 07/26/19 10:09 Dose: 1 each Documented by: Ondansetron HCl (Zofran) 4 mg IV Q8H PRN PRN Reason: Nausea And Vomiting Penicillin G Benzathine (Bicillin L-A) 2.4 mil.units IM ONCE ONE Stop: 07/26/19 16:31 Sodium Chloride (Sodium Chloride Flush Syringe 10 Ml) 10 ml IV PRN PRN PRN Reason: LINE FLUSH Witch Pinky/Glycerin (Tucks Pad) 1 each TP PRN PRN PRN Reason: Hemorrhoid/cleansing/soothing Physical Examination - Physical Exam Narrative exam: Physical Exam: Constitutional: Alert, cooperative. No acute distress Head, Ears, Nose: Normocephalic, atraumatic. External ears, nose normal Eyes: Conjunctivae/corneas clear. No icterus. No ptosis. Neck: Supple, no meningeal signs Oral: dentition fair, no thrush Cardiovascular: S1, S2 normal. Respiratory: Good air entry, clear to auscultation bilaterally GI: Soft, non-tender; bowel sounds normal. No peritoneal signs Musculoskeletal: No pedal edema, no cyanosis. Skin: hyperpigmented rash on palms and soles Hem/Lymphatic: No palpable cervical or supraclavicular nodes. No lymphangitis Psych: Mood ok. Affect normal Neurological: Awake, alert, oriented. No gross abnormality - Constitutional Vitals: Vital Signs Temp Pulse Resp BP Pulse Ox 98.1 F 48 L 16 113/62 100 07/26/19 08:16 07/26/19 08:16 07/26/19 08:16 07/26/19 08:16 07/26/19 08:16 Temperature -Last 24 Hours Temperature 98.1 F Temperature 98.6 F Temperature 97.9 F Results - Labs CBC & Chem 7: 07/25/19 12:50 07/24/19 20:04 Assessment and Plan Cultures/Microbiology: RPR: Reactive 1:32 Hep B and C negative A/P: 23-year-old female with no significant past medical history came into the hospital on 07/24/2019 in the blood. She reportedly got no care. 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 2) state: Syphilis is not known to be transmitted through human milk, hence, if she has no cutaneous lesions on the breast, okay to breast-feed. Recs: IM Benzathine Penicillin 2.4 million units x 1 now, and will probably benefit from a second dose 1 week later (based on expert recommendations, but weak literature support) Follow up HIV test Testing and treatment of partner recommended to patient Also recommend treatment of baby, defer to cloth packer Barber Muñiz MD, FACP [facility] C: [phone] O: [phone] F: [phone]
--- NOTE | 2019-07-27 09:26 | Progress Note ---
Assessment and Plan A: day 3 S/P spontaneous vaginal delivery. Anemia secondary to and blood loss. Secondary syphilis. Probable UTI. P: Plan to discharge patient home later today if she continues to do well. Instructed patient that she is to see the [facility] Department or her PCP within 1 week so that she can obtain the follow up Benzathine Penicillin G injections and labs that were recommended by ID. Advised patient that she is to call for an appointment tomorrow. Advised patient she is to continue taking her vitamins and iron supplements at home and also to take Macrobid as prescribed. The following Rx were called to [facility] on [address] in [place], [place]: Macrobid 100 mg, #14, 1 po BID and Ferrous Sulfate 325 mg, #60, 1 po BID. discharge instructions and warning signs discussed with patient in detail. Advised patient to avoid intercourse/sexual activity. Advised patient to avoid lifting and heavy housework. Patient to return promptly if any problems. Advised patient to follow up at [facility] in 6 weeks for exam. Advised patient that her sexual partner also needs to be tested and treated for syphilis. Patient voiced understanding of all instructions. Subjective - Subjective Date of service: 07/27/19 Principal diagnosis: - day #3 Interval history: day 3 S/P spontaneous vaginal delivery. Patient had had no care until the day she delivered her baby (she cited insurance reasons). Patient had a positive RPR with titer of 1:32 on her admission labs. Baby is in NICU for observation. ID doctor saw patient yesterday and diagnosed secondary syphilis. Patient had reported a rash on her palms, soles and legs. Patient received an injection of Benzathine Penicillin G 2.4 million units yesterday and she is to have a follow up injection in 1 week per ID recommendations. Urinalysis showed + leukocytes and 7 WBC/hpf. Patient reports urinary frequency. No flank pain, fever or chills or malaise. Will Rx Macrobid to [facility] and iron to [facility] when patient is discharged later today. Pelvic US was negative, just showed and enlarged uterus. Patient reports a small amount of lochia and no clots. Patient is voiding without difficulty, ambulating well, passing gas, and tolerating a regular diet. Patient denies headache, chest pain, shortness of breath, cough, leg pain, abdominal pain, dizziness, or heavy bleeding. Patient reports: appetite normal, voiding normally, pain well controlled, flatus, ambulating normally, no dizzy ambulation, no nauseated [place]: doing well, in NICU Objective - Vital Signs Latest vital signs: Vital Signs Temp Pulse Resp BP BP Pulse Ox 07/27/19 07:50 98.2 F 51 L 18 117/57 07/26/19 23:59 98.1 F 62 18 109/75 100 07/26/19 17:01 97.7 F 16 110/60 Intake and Output 07/26/19 07/27/19 07/27/19 23:59 07:59 15:59 Intake Total 1000 Balance 1000 Intake: Oral 480 Intake, Free Water 520 Other: Total, Intake Amount 480 # Voids Void 2 - Exam Cardiovascular: Present: Regular rate, Normal S1, Normal S2, No murmurs Lungs: Present: Clear to auscultation Abdomen: Present: normal appearance, soft, normal bowel sounds. Absent: distention, tenderness, guarding, rigidity Uterus: Present: normal, firm, fundal height above umbilicus (Fundal height 1 FB above umbilicus). Absent: bogginess, tenderness Extremities: Present: normal. Absent: tenderness, edema
[2019-07-27] MEDS: IBUPROFEN PO SCH (10:09)
[2019-07-27] MEDS: PRENATAL VITAMIN PO SCH (10:10)
[2019-07-27] MEDS: FEOSOL PO SCH (10:10)
[2019-07-27 13:39] VITALS: BP 114/76
--- NOTE | 2019-07-27 14:28 | Discharge Summary ---
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 Primary care physician: PATRICIA LEBRON MD Hospitalization Reason for admission: active labor Delivery: Episiotomy: none Laceration: none Other procedures: none complications: other (diagnosis of secondary syphilis; UTI) Discharge diagnosis: delivery baby: female Pertinent studies: Labs, ultrasound Hospital course: Stable hospital course Condition at discharge: Good Disposition: DC-01 TO HOME OR SELFCARE - Discharge Diagnoses (1) delivery Status: Acute (2) Anemia, blood loss Status: Acute (3) Secondary syphilis Status: Acute Plan - Discharge Medications Prescriptions: Ferrous Sulfate [Ferrous Sulfate 324 MG] 324 mg PO BID 30 Days #60 tablet.dr - Provider Discharge Summary Activity: routine, no sex for 6 weeks, no heavy lifting 4 weeks, no strenuous exercise Diet: routine Instructions: routine Additional instructions: Take your vitamins and iron supplements and Macrobid at home (Rx at [facility] on [address] Go to health department in 1 week for follow up Benzathine Penicillin G injection. See your PCP right away. Avoid intercourse and have your sexual partner(s) be tested and treated for syphilis. Call your doctor immediately for: * Fever > 100.5 * Heavy vaginal bleeding ( >1 pad per hour) * Severe persistent headache * Shortness of breath * Reddened, hot, painful area to leg or breast - Follow up plan Follow up: PATRICIA LEBRON MD [Primary Care Provider] - 14 Days Forms: [facility] Discharge Summary, Discharge Signature Page
[2019-07-28 11:38] LABS: HIV-1 Antibody Differentiation SEE SCANNED RESULT; HIV-2 Antibody Differentiation SEE SCANNED RESULT
== END 2019-07-27 15:11 | disposition home or self-care (01) | DRG 774 ==
LOC: TRG 17:02 → LD 17:19 → TRG 17:19 → OBSVTOIN 17:19 → OB 07-25 03:12
PROVIDERS: ADMIT Obstetrics & Gynecology; ATTEND Obstetrics & Gynecology
PROC: 10E0XZZ Delivery of Products of Conception, External Approach (ICD-10-PCS; principal; 2019-07-24)
DX: O60.14X0 Preterm labor third trimester with preterm delivery third trimester, not applicable or unspecified (principal); O98.12 Syphilis complicating childbirth; O75.3 Other infection during labor; O99.02 Anemia complicating childbirth; O77.0 Labor and delivery complicated by meconium in amniotic fluid; D62 Acute posthemorrhagic anemia; O62.3 Precipitate labor; Z3A.33 33 weeks gestation of pregnancy; Z37.0 Single live birth; Z79.899 Other long term (current) drug therapy
CPT/HCPCS: 36415; 76805; 76819; 76856; 76857; 80053; 80307; 81001; 85014; 85018; 85025; 86592; 86593; 86689; 86706; 86762; 86780; 86803; 86850; 86900; 86901; 87086; 87116; 88307; G0378; J0290; J0561; J0595; J0702; J2590; J7120

== ENCOUNTER 2020-09-19 14:52 | Emergency (ER) | payer MEDICAID ==
--- NOTE | 2020-09-19 15:33 | Event Note ---
ED Screening Note ED Screening Note: this morning began having n/v/d states she had greater than 10 episodes states she saw small streaks of blood during her last episode of vomiting abd cramping no sick contacts no recent travel no recent abx no water from a different source or camping ate some noodles last night PMHx anemia no past abdominal surgical history LNMP: 09/12/2020 This initial assessment/diagnostic orders/clinical plan/treatment(s) is/are subject to change based on patients health status, clinical progression and re- assessment by fellow clinical providers in the ED. Further treatment and workup at subsequent clinical providers discretion. Patient/guardian urged not to elope from the ED as their condition may be serious if not clinically assessed and managed. Initial orders include: labs, UA
[2020-09-19 15:57] LABS: Basophils # (Auto) 0.1 K/mm3 (0.0-0.1); Basophils % (Auto) 0.4 % (0.0-1.8); Hematocrit 44.7 % (30.3-42.9); Hemoglobin 15.1 gm/dl (10.1-14.3); Lymphocytes # (Auto) 1.3 K/mm3 (1.2-5.4); Lymphocytes % (Auto) 9.7 % (13.4-35.0); Mean Corpuscular HGB Conc 34 % (30-34); Mean Corpuscular Volume 95 fl (79-97); Monocytes # (Auto) 0.4 K/mm3 (0.0-0.8); Monocytes % (Auto) 2.8 % (0.0-7.3); Platelet Count 411 K/mm3 (140-440); Red Blood Count 4.73 M/mm3 (3.65-5.03); Red Cell Distribution Width 12.9 % (13.2-15.2)
[2020-09-19 16:17] LABS: Alanine Aminotransferase 29 units/L (7-56); Albumin 5.1 g/dL (3.9-5); Blood Urea Nitrogen 16 mg/dL (7-17); Calcium 10.2 mg/dL (8.4-10.2); Hemolysis Index 13
[2020-09-19 16:20] LABS: BUN/Creatinine Ratio 23
[2020-09-19 18:44] LABS: Mucus,Urine FEW /HPF
[2020-09-19 18:49] LABS: Bilirubin,Urine NEG (Negative); Blood,Urine NEG (Negative); Color,Urine Yellow (Yellow); Urobilinogen,Urine < 2.0 mg/dL (<2.0)
[2020-09-19] MEDS ORDERED: KETOROLAC 30 MG/1 ML INJ IV ONE (23:18)
[2020-09-19] MEDS ORDERED: FAMOTIDINE 20 MG/2 ML INJ IV ONE (23:18)
[2020-09-19] MEDS ORDERED: ONDANSETRON 4 MG/2 ML INJ IV ONE (23:18)
[2020-09-19] MEDS ORDERED: D5W/0.9% NACL 1,000 ML IV SCH (23:45)
--- NOTE | 2020-09-20 00:08 | Cat Scan Report ---
CT ABDOMEN AND PELVIS WITH CONTRAST INDICATION / CLINICAL INFORMATION: NVD abd pain. TECHNIQUE: Axial CT images were obtained through the abdomen and pelvis after 100 mL Omnipaque [address] scans at this location are performed using CT dose reduction for ALARA by means of automated exposure control. COMPARISON: None available. FINDINGS: LOWER CHEST: No significant abnormality. LIVER: No significant abnormality. BILIARY SYSTEM: No significant abnormality. PANCREAS: No significant abnormality. SPLEEN: No significant abnormality. ADRENALS: No significant abnormality. KIDNEYS and URETERS: No significant abnormality. STOMACH / BOWEL: There is mild pancolonic wall thickening with associated mucosal hyperenhancement. N o significant perienteric inflammation. No evidence of bowel obstruction. The appendix is normal. PERITONEUM: No free fluid. No free air. No fluid collection. LYMPH NODES: No significant adenopathy. VASCULAR STRUCTURES: No significant abnormality. URINARY BLADDER: No significant abnormality. REPRODUCTIVE ORGANS: No significant abnormality. ADDITIONAL FINDINGS: None. SKELETAL SYSTEM: No significant abnormality. IMPRESSION: 1. Mild pancolonic wall thickening and mucosal hyperenhancement suggestive of colitis, which may be i nfectious or inflammatory in nature. Signer Name: Joyce Shaffer MD Signed: 09/20/2020 12:03 AM Workstation Name: [id number]
--- NOTE | 2020-09-20 00:14 | Emergency Department Report ---
ED Abdominal Pain HPI - General Chief Complaint: GI Bleed Stated Complaint: CHEST PAIN/VOMIT BLOOD/LISA Time Seen by Provider: 09/19/20 15:30 Source: patient Mode of arrival: Ambulatory Limitations: No Limitations - History of Present Illness Initial Comments: Patient is a 25-year-old F [place] female with no significant past medical history who is presenting with nausea vomiting diarrhea. Patient states earlier this morning she woke up with some stomach pains. She states it was a diffuse crampy pain. She then became very nauseous and vomited greater than 10 times. The last several episodes had streaks of blood. She has loose stools as well. Patient states she has not vomited in several hours but she still nauseous. States that she is fatigued and dizzy. She denies fever cough cold congestion sick contacts. She states she drank a small amount of wine last night but not enough that she believes it would have caused the symptoms. Patient still having some crampy bilateral lower quadrant pain. Pain is a 6 out of 10 in severity. Severity scale (0 -10): 8 - Related Data Home Medications Medication Instructions Recorded Confirmed Last Taken Pnv,Calcium 72/Iron/Folic Acid 1 each PO DAILY 10/09/17 07/25/19 10/08/17 09:00 [Preplus Ca-Fe 27 mg-FA 1 mg Tb] 1 Previous Rx's Medication Instructions Recorded Last Taken Type Ferrous Sulfate [Ferrous Sulfate 324 mg PO BID 30 Days #60 tablet. 07/25/19 Unknown Rx 324 MG] Ciprofloxacin HCl [Ciprofloxacin 500 mg PO Q12HR #14 tab 09/20/20 Unknown Rx TAB] Dicyclomine [Bentyl] 20 mg PO QID #10 tablet 09/20/20 Unknown Rx Ondansetron [Zofran Odt] 2 mg PO BID PRN #4 tab.rapdis 09/20/20 Unknown Rx metroNIDAZOLE [Flagyl] 500 mg PO Q12HR #14 tab 09/20/20 Unknown Rx traMADoL [Ultram] 50 mg PO Q6HR PRN #12 tablet 09/20/20 Unknown Rx Allergies Allergy/AdvReac Type Severity Reaction Status Date / Time No Known Allergies Allergy Verified 10/09/17 09:32 ED Review of Systems ROS: Stated complaint: CHEST PAIN/VOMIT BLOOD/LISA Other details as noted in HPI Comment: All other systems reviewed and negative ED Past Medical Hx - Past Medical History Previous Medical History?: Yes Hx Hypertension: No Hx CVA: No Hx Heart Attack/AMI: No Hx Congestive Heart Failure: No Hx Diabetes: No Hx Deep Vein Thrombosis: No Hx Pulmonary Embolism: No Hx GERD: Yes Hx Liver Disease: No Hx Renal Disease: No Hx Sickle Cell Disease: No Hx Arthritis: No Hx Headaches / Migraines: No Hx Seizures: No Hx Kidney Stones: No Hx Psychiatric Treatment: No Hx Asthma: No Hx COPD: No Hx Tuberculosis: No Hx Dementia: No Hx HIV: No Additional medical history: 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 had surgery for cancer in 2009; TUMOR REMOVED FROM BACK - Social History Smoking Status: Former Smoker Substance Use Type: Alcohol, Marijuana - Medications Home Medications: Home Medications Medication Instructions Recorded Confirmed Last Taken Type Pnv,Calcium 72/Iron/Folic Acid 1 each PO DAILY 10/09/17 07/25/19 10/08/17 09:00 History [Preplus Ca-Fe 27 mg-FA 1 mg Tb] 1 Ferrous Sulfate [Ferrous Sulfate 324 mg PO BID 30 Days #60 tablet.dr 07/25/19 Unknown Rx 324 MG] Ciprofloxacin HCl [Ciprofloxacin 500 mg PO Q12HR #14 tab 09/20/20 Unknown Rx TAB] Dicyclomine [Bentyl] 20 mg PO QID #10 tablet 09/20/20 Unknown Rx Ondansetron [Zofran Odt] 2 mg PO BID PRN #4 tab.rapdis 09/20/20 Unknown Rx metroNIDAZOLE [Flagyl] 500 mg PO Q12HR #14 tab 09/20/20 Unknown Rx traMADoL [Ultram] 50 mg PO Q6HR PRN #12 tablet 09/20/20 Unknown Rx ED Physical Exam - General Limitations: No Limitations General appearance: alert, in no apparent distress - Head Head exam: Present: atraumatic, normocephalic - Eye Eye exam: Present: normal appearance, PERRL, EOMI - ENT ENT exam: Present: normal orophraynx, mucous membranes moist - Neck Neck exam: Present: normal inspection - Respiratory Respiratory exam: Present: normal lung sounds bilaterally. Absent: respiratory distress, wheezes, rales, rhonchi - Cardiovascular Cardiovascular Exam: Present: regular rate, normal rhythm, normal heart sounds. Absent: systolic murmur, diastolic murmur, rubs, gallop - GI/Abdominal GI/Abdominal exam: Present: soft, tenderness (Bilateral lower quadrants.), normal bowel sounds. Absent: distended, guarding, rebound, rigid - Extremities Exam Extremities exam: Present: normal inspection - Back Exam Back exam: Present: normal inspection - Neurological Exam Neurological exam: Present: alert, oriented X3 - Psychiatric Psychiatric exam: Present: normal affect, normal mood - Skin Skin exam: Present: warm, dry, intact, normal color. Absent: rash ED Course Vital Signs 09/19/20 15:12 Temperature 98.6 F Pulse Rate 110 H Respiratory 18 Rate Blood Pressure 131/73 O2 Sat by Pulse 97 Oximetry - Reevaluation(s) Reevaluation #1: 09/20/20 00:12 Patient has significant amount of ketones in her urine. She was started on D5 normal saline given 2 L bolus. Was given medication for symptomatic relief. Because of the elevated white count her abdominal pain CT will be performed. ED Medical Decision Making - Lab Data Result diagrams: 09/19/20 15:41 09/19/20 15:41 Lab Results 09/19/20 09/19/20 09/19/20 Range/Units 15:41 15:41 15:41 WBC 13.4 H (4.5-11.0) K/mm3 RBC 4.73 (3.65-5.03) M/mm3 Hgb 15.1 H (10.1-14.3) gm/dl Hct 44.7 H (30.3-42.9) % MCV 95 (79-97) fl MCH 32 (28-32) pg MCHC 34 (30-34) % RDW 12.9 L (13.2-15.2) % Plt Count 411 (140-440) K/mm3 Lymph % (Auto) 9.7 L (13.4-35.0) % [place] % (Auto) 2.8 (0.0-7.3) % Eos % (Auto) 0.0 (0.0-4.3) % Baso % (Auto) 0.4 (0.0-1.8) % Lymph # (Auto) 1.3 (1.2-5.4) K/mm3 [place] # (Auto) 0.4 (0.0-0.8) K/mm3 Eos # (Auto) 0.0 (0.0-0.4) K/mm3 Baso # (Auto) 0.1 (0.0-0.1) K/mm3 Seg Neutrophils % 87.1 H (40.0-70.0) % Seg Neutrophils # 11.7 H (1.8-7.7) K/mm3 Sodium 137 (137-145) mmol/L Potassium 4.0 (3.6-5.0) mmol/L Chloride 99.6 (98-107) mmol/L Carbon Dioxide 19 L (22-30) mmol/L Anion Gap 22 mmol/L BUN 16 (7-17) mg/dL Creatinine 0.7 (0.6-1.2) mg/dL Estimated GFR > 60 ml/min BUN/Creatinine Ratio 23 % Glucose 90 (65-100) mg/dL Calcium 10.2 (8.4-10.2) mg/dL Total Bilirubin 1.30 H (0.1-1.2) mg/dL AST 47 H (5-40) units/L ALT 29 (7-56) units/L Alkaline Phosphatase 58 (35-129) units/L Total Protein 8.7 H (6.3-8.2) g/dL Albumin 5.1 H (3.9-5) g/dL Albumin/Globulin Ratio 1.4 % Lipase 8 L (13-60) units/L HCG, Qual Negative (Negative) Urine Color (Yellow) Urine Turbidity (Clear) Urine pH (5.0-7.0) Ur Specific [place] (1.003-1.030) Urine Protein (Negative) mg/dL Urine Glucose (UA) (Negative) mg/dL Urine Ketones (Negative) mg/dL Urine Blood (Negative) Urine Nitrite (Negative) Ur Reducing Substances Urine Bilirubin (Negative) Urine Ictotest Urine Urobilinogen (<2.0) mg/dL Ur Leukocyte Esterase (Negative) Urine WBC (Auto) (0.0-6.0) /HPF Urine RBC (Auto) (0.0-6.0) /HPF U Epithel Cells (Auto) (0-13.0) /HPF Urine Mucus /HPF 09/19/20 Range/Units 15:55 WBC (4.5-11.0) K/mm3 RBC (3.65-5.03) M/mm3 Hgb (10.1-14.3) gm/dl Hct (30.3-42.9) % MCV (79-97) fl MCH (28-32) pg MCHC (30-34) % RDW (13.2-15.2) % Plt Count (140-440) K/mm3 Lymph % (Auto) (13.4-35.0) % [place] % (Auto) (0.0-7.3) % Eos % (Auto) (0.0-4.3) % Baso % (Auto) (0.0-1.8) % Lymph # (Auto) (1.2-5.4) K/mm3 [place] # (Auto) (0.0-0.8) K/mm3 Eos # (Auto) (0.0-0.4) K/mm3 Baso # (Auto) (0.0-0.1) K/mm3 Seg Neutrophils % (40.0-70.0) % Seg Neutrophils # (1.8-7.7) K/mm3 Sodium (137-145) mmol/L Potassium (3.6-5.0) mmol/L Chloride (98-107) mmol/L Carbon Dioxide (22-30) mmol/L Anion Gap mmol/L BUN (7-17) mg/dL Creatinine (0.6-1.2) mg/dL Estimated GFR ml/min BUN/Creatinine Ratio % Glucose (65-100) mg/dL Calcium (8.4-10.2) mg/dL Total Bilirubin (0.1-1.2) mg/dL AST (5-40) units/L ALT (7-56) units/L Alkaline Phosphatase (35-129) units/L Total Protein (6.3-8.2) g/dL Albumin (3.9-5) g/dL Albumin/Globulin Ratio % Lipase (13-60) units/L HCG, Qual (Negative) Urine Color Yellow (Yellow) Urine Turbidity Clear (Clear) Urine pH 5.0 (5.0-7.0) Ur Specific [place] 1.021 (1.003-1.030) Urine Protein 30 mg/dl (Negative) mg/dL Urine Glucose (UA) Neg (Negative) mg/dL Urine Ketones 80 (Negative) mg/dL Urine Blood Neg (Negative) Urine Nitrite Neg (Negative) Ur Reducing Substances Not Reportable Urine Bilirubin Neg (Negative) Urine Ictotest Not Reportable Urine Urobilinogen < 2.0 (<2.0) mg/dL Ur Leukocyte Esterase Neg (Negative) Urine WBC (Auto) 1.0 (0.0-6.0) /HPF Urine RBC (Auto) 3.0 (0.0-6.0) /HPF U Epithel Cells (Auto) 2.0 (0-13.0) /HPF Urine Mucus Few /HPF - Radiology Data CT ABDOMEN AND PELVIS WITH CONTRAST INDICATION / CLINICAL INFORMATION: NVD abd pain. TECHNIQUE: Axial CT images were obtained through the abdomen and pelvis after 100 mL Omnipaque [address] scans at this location are performed using CT dose reduction for ALARA by means of automated exposure control. COMPARISON: None available. FINDINGS: LOWER CHEST: No significant abnormality. LIVER: No significant abnormality. BILIARY SYSTEM: No significant abnormality. PANCREAS: No significant abnormality. SPLEEN: No significant abnormality. ADRENALS: No significant abnormality. KIDNEYS and URETERS: No significant abnormality. STOMACH / BOWEL: There is mild pancolonic wall thickening with associated mucosal hyperenhancement. No significant perienteric inflammation. No evidence of bowel obstruction. The appendix is normal. PERITONEUM: No free fluid. No free air. No fluid collection. LYMPH NODES: No significant adenopathy. VASCULAR STRUCTURES: No significant abnormality. URINARY BLADDER: No significant abnormality. REPRODUCTIVE ORGANS: No significant abnormality. ADDITIONAL FINDINGS: None. SKELETAL SYSTEM: No significant abnormality. IMPRESSION: 1. Mild pancolonic wall thickening and mucosal hyperenhancement suggestive of colitis, which may be infectious or inflammatory in nature. Signer Name: Joyce Shaffer MD Signed: 09/20/2020 12:03 AM Workstation Name: [id number] - Medical Decision Making Patient is a 25-year-old F [place] female who is presenting with nausea vomiting and diarrhea. CT shows findings consistent with colitis. Patient as would the symptoms cause her to have shortness of breath. As the patient is has the patient been coughing lately she states she has had a slight productive cough. Initially she stated she was not coughing and then she states she is. Given the fact that the patient has colitis and is the height of the COVID-19 pandemic patient could have COVID-19 infection with atypical symptoms. Patient urged to get COVID-19 testing. Patient was started on Cipro Flagyl and patient will be able to be discharged home. Patient given prescription for symptomatic relief. Critical care attestation.: If time is entered above; I have spent that time in minutes in the direct care of this critically ill patient, excluding procedure time. ED Disposition Clinical Impression: Acute gastroenteritis, Colitis, Suspected COVID-19 virus infection Disposition: TO HOME OR SELFCARE Is pt being admited?: No Does the pt Need Aspirin: No Condition: Stable Instructions: Viral Gastroenteritis, Adult, Colitis, COVID-19 Frequently Asked Questions, COVID-19: How to Protect Yourself and Others - [facility] Referrals: CEM BROWN MD [Referring] - [facility] (call foir appointment for Covid 19 testing and follow up ) Forms: Accompanied Note Time of Disposition: 00:26
[2020-09-20] MEDS ORDERED: metroNIDAZOLE/NS 500 MG/100 ML 500 MG/100 ML BAG IV ONE (00:22)
[2020-09-20] MEDS ORDERED: D5W/0.9% NACL 1,000 ML IV SCH (00:45)
[2020-09-20 03:58] VITALS: BP 125/81
== END 2020-09-20 03:58 | disposition home or self-care (01) ==
LOC: ED 14:52
DX: K21.9 Gastro-esophageal reflux disease without esophagitis (principal); K52.9 Noninfective gastroenteritis and colitis, unspecified; Z20.828 Contact with and (suspected) exposure to other viral communicable diseases; Z98.890 Other specified postprocedural states; F12.10 Cannabis abuse, uncomplicated; Z79.899 Other long term (current) drug therapy
CPT/HCPCS: 36415; 74177; 80053; 81001; 83690; 84703; 85025; 93005; 96361; 96365; 96367; 96375; 99284; J1885; J1956; J2405; J7042; Q9967

== ENCOUNTER 2021-04-29 10:58 | Emergency (ER) | payer MEDICAID ==
[2021-04-29] MEDS ORDERED: FLUORESCEIN 1 MG STRIP OP ONE (11:48)
[2021-04-29] MEDS ORDERED: TETRACAINE 0.5% OPHTH SOLN 4ML OU ONE (11:48)
--- NOTE | 2021-04-29 11:51 | Event Note ---
ED Screening Note Date of service: 04/29/21 Time: 11:49 ED Screening Note: 25-year-old female patient presents to the emergency department with complaints of bilateral ocular pain and swelling starting this morning. No preceding fall, trauma, or injury. Patient wears contact lenses but states she removed them last night prior to the onset of her symptoms this morning. No new environmental or chemical exposures. No known history of diabetes or hypertension. General: Awake, appropriately interactive. Patient is covering her eyes with her hands. Eyes: Patient refuses to open her eyes. Limited exam demonstrates bilateral conjunctival injection. Neck: Supple. Full range of motion intact. Cardiovascular: Normal peripheral perfusion. Pulmonary: No respiratory distress. Patient is speaking normally without use of accessory muscles. Skin: No apparent rashes or lesions. Neurological: No facial asymmetry. Speech is clear. Follows commands. Patient is alert and oriented. Musculoskeletal: Moves all four extremities spontaneously with normal range of motion. Psych: Cooperative. Appropriate mood and affect. I have greeted and performed a focused rapid initial assessment of this patient. A comprehensive ED assessment and evaluation of the patient, analysis of all test results, and completion of the medical decision-making process will be conducted by additional ED providers. This initial assessment/diagnostic orders/clinical plan/treatment(s) is/are subject to change based on patients health status, clinical progression and re-assessment. Further treatment and workup at subsequent clinical provider's discretion. Patient/guardian urged not to elope from the ED as their condition may be serious if not clinically assessed and managed.
[2021-04-29] MEDS ORDERED: IBUPROFEN 600 MG TAB PO ONE (14:16)
--- NOTE | 2021-04-29 15:37 | Emergency Department Report ---
ED Eye Problem HPI - General Chief complaint: Eye Problems Stated complaint: WOKE UP CANT SEE Time Seen by Provider: 04/29/21 14:46 Source: patient Mode of arrival: Ambulatory Limitations: No Limitations - History of Present Illness Initial comments: 25-year-old F [place] female who wears contacts presents emerged department complaining of waking up with very painful red eyes and some blurred blurred vision this morning of an unknown etiology. She reports no known trauma reports no fever, chills, sweats, no nasal congestion, no sore throat. No nausea, no vomiting, no hemoptysis no hematemesis no significant headache. There is photophobia present. Anti-inflammatories do help but do not resolve the pain MD chief complaint: eye pain, eye redness Location: both eyes Place: home If Injury: none Eye Symptoms: burning, redness, pain If Pain, Quality: burning Context: contact lens use - Related Data Home Medications Medication Instructions Recorded Confirmed Last Taken Pnv,Calcium 72/Iron/Folic Acid 1 each PO DAILY 10/09/17 07/25/19 10/08/17 09:00 [Preplus Ca-Fe 27 mg-FA 1 mg Tb] 1 Previous Rx's Medication Instructions Recorded Last Taken Type Ferrous Sulfate [Ferrous Sulfate 324 mg PO BID 30 Days #60 tablet. 07/25/19 Unknown Rx 324 MG] Ciprofloxacin HCl [Ciprofloxacin 500 mg PO Q12HR #14 tab 09/20/20 Unknown Rx TAB] Dicyclomine [Bentyl] 20 mg PO QID #10 tablet 09/20/20 Unknown Rx Ondansetron [Zofran Odt] 2 mg PO BID PRN #4 tab.rapdis 09/20/20 Unknown Rx metroNIDAZOLE [Flagyl] 500 mg PO Q12HR #14 tab 09/20/20 Unknown Rx traMADoL [Ultram] 50 mg PO Q6HR PRN #12 tablet 09/20/20 Unknown Rx Ketorolac Tromethamine [Acular 1 drop OP Q4HR #1 bottle 04/29/21 Unknown Rx 0.5% Opth Soln] Tropicamide 1% [Mydriacyl] 1 drop OP QID #1 bottle 04/29/21 Unknown Rx predniSONE [Deltasone] 50 mg PO QDAY #5 tab 04/29/21 Unknown Rx Allergies Allergy/AdvReac Type Severity Reaction Status Date / Time No Known Allergies Allergy Verified 10/09/17 09:32 ED Review of Systems ROS: Stated complaint: WOKE UP CANT SEE Other details as noted in HPI Comment: All other systems reviewed and negative ED Past Medical Hx - Past Medical History Previous Medical History?: Yes Hx Hypertension: No Hx CVA: No Hx Heart Attack/AMI: No Hx Congestive Heart Failure: No Hx Diabetes: No Hx Deep Vein Thrombosis: No Hx Pulmonary Embolism: No Hx GERD: Yes Hx Liver Disease: No Hx Renal Disease: No Hx Sickle Cell Disease: No Hx Arthritis: No Hx Headaches / Migraines: No Hx Seizures: No Hx Kidney Stones: No Hx Psychiatric Treatment: No Hx Asthma: No Hx COPD: No Hx Tuberculosis: No Hx Dementia: No Hx HIV: No Additional medical history: 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 had surgery for cancer in 2009; TUMOR REMOVED FROM BACK - Social History Smoking Status: Former Smoker Substance Use Type: Alcohol, Marijuana - Medications Home Medications: Home Medications Medication Instructions Recorded Confirmed Last Taken Type Pnv,Calcium 72/Iron/Folic Acid 1 each PO DAILY 10/09/17 07/25/19 10/08/17 09:00 History [Preplus Ca-Fe 27 mg-FA 1 mg Tb] 1 Ferrous Sulfate [Ferrous Sulfate 324 mg PO BID 30 Days #60 tablet. 07/25/19 Unknown Rx 324 MG] Ciprofloxacin HCl [Ciprofloxacin 500 mg PO Q12HR #14 tab 09/20/20 Unknown Rx TAB] Dicyclomine [Bentyl] 20 mg PO QID #10 tablet 09/20/20 Unknown Rx Ondansetron [Zofran Odt] 2 mg PO BID PRN #4 tab.rapdis 09/20/20 Unknown Rx metroNIDAZOLE [Flagyl] 500 mg PO Q12HR #14 tab 09/20/20 Unknown Rx traMADoL [Ultram] 50 mg PO Q6HR PRN #12 tablet 09/20/20 Unknown Rx Ketorolac Tromethamine [Acular 1 drop OP Q4HR #1 bottle 04/29/21 Unknown Rx 0.5% Opth Soln] Tropicamide 1% [Mydriacyl] 1 drop OP QID #1 bottle 04/29/21 Unknown Rx predniSONE [Deltasone] 50 mg PO QDAY #5 tab 04/29/21 Unknown Rx ED Physical Exam - General Limitations: No Limitations General appearance: alert, in no apparent distress - Head Head exam: Present: atraumatic, normocephalic - Eye Eye exam: Present: normal appearance, PERRL, EOMI, other (Bilateral conjunctival irritation and injection no foreign bodies are appreciated. The fluorescein examination was negative. No signs of entrapment with range of motion.). Absent: nystagmus Pupils: Present: normal accommodation, other (Negative funduscopic examination) - ENT ENT exam: Present: normal exam, normal orophraynx, mucous membranes moist - Neck Neck exam: Present: normal inspection, full ROM. Absent: tenderness, meningismus - Respiratory Respiratory exam: Present: normal lung sounds bilaterally. Absent: respiratory distress - Cardiovascular Cardiovascular Exam: Present: regular rate, normal rhythm. Absent: systolic murmur, diastolic murmur, rubs, gallop - GI/Abdominal GI/Abdominal exam: Present: soft, normal bowel sounds - Extremities Exam Extremities exam: Present: normal inspection - Back Exam Back exam: Present: normal inspection - Neurological Exam Neurological exam: Present: alert, oriented X3 - Psychiatric Psychiatric exam: Present: normal affect, normal mood - Skin Skin exam: Present: warm, dry, intact, normal color. Absent: rash ED Course Vital Signs 04/29/21 04/29/21 11:10 15:16 Temperature 98.8 F Pulse Rate 87 Respiratory 16 16 Rate Blood Pressure 129/84 O2 Sat by Pulse 100 Oximetry ED Medical Decision Making - Medical Decision Making Procedure abdomen female resents emergency department today complaining of bilateral eye pain/redness and blurred vision. Examination did not reveal any traumatic indications for this concern. At this present time no emergent interventions were found to be in be necessary.. Examination was normal. This appears to be consistent with uveitis or iritis no purulent drainage so conjunctivitis,blepharitis or dacryocystitis less likely. The symptoms have only been present less than 10 hours and could still be evolving. No no upper respiratory or viral symptoms are present on examination either. We will treat her accordingly with anti-inflammatories and cycloplegic drugs and have her follow-up with primary care/ophthalmology within 48 hours Critical care attestation.: If time is entered above; I have spent that time in minutes in the direct care of this critically ill patient, excluding procedure time. ED Disposition Clinical Impression: Eye pain, Uveitis of both eyes Disposition: DC- TO HOME OR SELFCARE Is pt being admited?: No Does the pt Need Aspirin: No Condition: Stable Instructions: Uveitis Additional Instructions: Given evaluate emergency department today for red eye and eye pain your evaluation showed no signs of any emergent medical conditions at this time however it is recommended you take medications as prescribed and be sure to follow-up with an data librarian within 2 to 3 days. Please return to emergency department should you feel that your vision is worsening, pain increasing, a fever fever developments or any other suggestions that your condition is worsening Prescriptions: Ketorolac Tromethamine [Acular 0.5% Opth Soln] 1 drop OP Q4HR #1 bottle predniSONE [Deltasone] 50 mg PO QDAY #5 tab Tropicamide 1% [Mydriacyl] 1 drop OP QID #1 bottle Referrals: [facility] [Provider Group] - 2-3 Days PRIMARY CAREMD [Primary Care Provider] - 2-3 Days BRENT JACKSON MD [Staff Physician] - 2-3 Days
[2021-04-29 16:28] VITALS: BP 124/76
== END 2021-04-29 16:28 | disposition home or self-care (01) ==
LOC: ED 10:58
DX: H20.9 Unspecified iridocyclitis (principal); H57.13 Ocular pain, bilateral; K21.9 Gastro-esophageal reflux disease without esophagitis; F12.10 Cannabis abuse, uncomplicated; Z98.890 Other specified postprocedural states; Z87.891 Personal history of nicotine dependence; Z79.2 Long term (current) use of antibiotics; Z79.899 Other long term (current) drug therapy
CPT/HCPCS: 99282; 99283